=== PATIENT | male | born 1970 | race Caucasian/White ===

== ENCOUNTER 2019-08-15 12:13 | Emergency (ER) | payer OTHER ==
[2019-08-15 12:33] VITALS: BP 122/87; PULSE 100; TEMP 99; BMI 26.8
--- NOTE | 2019-08-15 13:25 | PDOC ---
History of Present Illness - General Chief Complaint: Edema Stated Complaint: SWELLING UNDER RIGHT EYE Time Seen by Provider: 08/15/19 13:01 History Source: Patient Exam Limitations: No Limitations - History of Present Illness Initial Comments: 08/15/19 13:08 Mr. Salmon is a 49-year-old male who presents emergency department with a complaint of swelling of the right cheek periorbital area. Patient states his symptoms began as a small papule. He picked at it and noted that it became more swollen. At some point he inserted a needle into the area and could not extract any purulence Patient became concerned because the area beneath the right eye began to swell He has no fevers or chills He has noted no drainage from the area He first noticed the swelling on his face approximately 2 weeks ago. Since then it is been persistent. Of note he also notes an area on the left buttock that is swollen and also painful This, like the area on his face which is been swollen has been present for the past 2 weeks as well Both areas have increased in size certainly over the past 5 days PMH: Hypertension, hyperlipidemia PSH: Denies Meds: Please see MAR ALL: NKDA Social: FH: ROS: GENERAL/CONSTITUTIONAL: No: fever, chills, weakness . HEAD, EYES, EARS, NOSE AND THROAT: No: change in vision CARDIOVASCULAR: No: chest pain, lightheadedness RESPIRATORY: No: cough, shortness of breath, wheezing GASTROINTESTINAL: No: nausea, vomiting, diarrhea, abdominal pain GENITOURINARY: No: dysuria, hematuria, frequency, urgency, flank pain. MUSCULOSKELETAL: No: back pain, neck pain, joint pain SKIN: Yes: Swelling and erythema of the cheek area NEUROLOGIC: No: headache, vertigo, paresthesias, weakness ENDOCRINE: No: unexplained weight gain or loss HEMATOLOGIC/LYMPHATIC: No: anemia, easy bleeding, swelling nodes. PE: GENERAL: The patient is in no acute distress. HEAD: Normal EYES: PERRLA, EOMI, sclera anicteric, conjunctiva clear, sclera noninjected, no limitation in range of movement of the eye, no pain with movement of the eye. ENT: Ears normal, nares patent, oropharynx clear without exudates. Moist mucous membranes. NECK: Normal range of motion, supple without lymphadenopathy LUNGS: Breath sounds equal, clear to auscultation bilaterally. No wheezes, and no crackles. HEART:Regular rate and rhythm, normal S1 and S2 without murmur, rub or gallop. ABDOMEN: Soft, nontender, normoactive bowel sounds. No guarding, no rebound. No masses palpable. EXTREMITIES: Normal range of motion, no edema. No clubbing or cyanosis. No erythema, or tenderness. NEUROLOGICAL: Cranial nerves II through XII grossly intact. Normal speech. No focal neurological deficits. MUSCULOSKELETAL: Back non-tender to palpation, no CVA tenderness SKIN: There is an indurated area overlying the zygomatic arch just inferior to the right eye. There is also slight bruising noted in addition to erythema. The area of induration measures approximately 1-1/2 cm in diameter There is no fluctuance There is also some 08/15/19 13:30 Left buttock: There is an area of induration measuring approximately 2 cm in diameter No fluctuance noted Minimally tender to palpation Past History - Past Medical History Allergies/Adverse Reactions: Allergies Allergy/AdvReac Type Severity Reaction Status Date / Time No Known Allergies Allergy Unverified 08/15/19 12:20 Home Medications: Ambulatory Orders Atorvastatin Ca [Lipitor] 40 mg PO HS 08/15/19 Bifidobacterium Infantis [Align] 10.5 mg PO DAILY #30 tab.chew 08/15/19 Cephalexin Monohydrate [Keflex -] 500 mg PO Q6H #28 capsule 08/15/19 Clonazepam 0.5 mg PO TID 08/15/19 Lisdexamfetamine Dimesylate [Vyvanse] 70 mg PO DAILY 08/15/19 Sulfamethoxazole/Trimethoprim [Bactrim Ds -] 1 tab PO BID #14 tablet 08/15/19 Venlafaxine HCl ER [Effexor Xr -] 75 mg PO DAILY 08/15/19 propRANOLol HCL [Inderal -] 70 mg PO HS 08/15/19 COPD: No HTN: Yes Hypercholesterolemia: Yes Psychiatric Problems: Yes (ADD DEPRESSION ANXIETY) - Psycho Social/Smoking Cessation Hx Smoking History: Current some day smoker Have you smoked in the past 12 months: Yes Number of Cigarettes Smoked Daily: 1 Information on smoking cessation initiated: Yes Hx Alcohol Use: No Drug/Substance Use Hx: No *Physical Exam - Vital Signs Last Vital Signs Temp Pulse Resp BP Pulse Ox 99 F 100 H 16 122/87 100 08/15/19 12:20 08/15/19 12:20 08/15/19 12:20 08/15/19 12:20 08/15/19 12:20 Medical Decision Making - Medical Decision Making 08/15/19 13:37 Mr. Salmon Is a 49-year-old male who presents emergency department with an area of induration and swelling beneath the right eye. He also has an area similar to this on the left but No systemic signs of illness (Although of note patient's temperature was 99 at triage may be indicative of a low-grade temperature) There is no areas of fluctuance noted We will plan the following: We will initiate antibiotic therapy for MRSA (patient has previously had a MRSA infection involving the lower extremity after arthropod bite) We will give probiotics We will asked patient to do warm soaks Patient will follow-up on Wednesday with either dermatology, plastics or primary care physician If neither of these are helpful, patient will come to the emergency department at [facility] Patient told about concerning signs and symptoms which should prompt immediate return to the emergency department Clinical impression: Cellulitis, initial presentation Phlegmon, initial presentation Discharge - Discharge Information Problems reviewed: Yes Clinical Impression/Diagnosis: Cellulitis and abscess of face Condition: Stable Disposition: HOME - Admission No - Additional Discharge Information Prescriptions: Bifidobacterium Infantis [Align] 10.5 mg PO DAILY #30 tab.chew Cephalexin Monohydrate [Keflex -] 500 mg PO Q6H #28 capsule Sulfamethoxazole/Trimethoprim [Bactrim Ds -] 1 tab PO BID #14 tablet Prescription Drug Monitoring Program (I-STOP) results: I-STOP not reviewed - Follow up/Referral Referrals: Herman Hernandes MD [Staff Physician] - Mich Dodge MD [Staff Physician] - Vicki Johnson [Staff Physician] - - Patient Discharge Instructions Patient Printed Discharge Instructions: DI for Cellulitis -- Adult Additional Instructions: Mr. Salmon Thank you for coming into the emergency department today. You were seen today for what appears to be a local infection and possible early abscess. I would like you to start taking 2 antibiotics which I prescribed I would also like you to start taking a probiotic along with the antibiotic Please apply warm compresses to the area on the face (something like 10 minutes 2 or 3 times per day Please also soak in a warm tub for 10 to 15 minutes twice per day I would like you to follow-up by the end of this week You can be seen by a redevelopment manager (Dr. Johnson), the plastic surgeon (Dr. Hernandes), the primary care physician (Dr. Dodge) or the ER Return to the emergency department immediately with fevers, chills, increased pain, increased swelling, inability to move the eyes. Continue any medications as previously prescribed by your physician. You should follow up with your primary doctor as soon as possible regarding today's emergency department visit. Please make sure your doctor reviews the results of your emergency evaluation. Thank you for coming to the [facility] today for your care. It was a pleasure to see you today. Please note that your evaluation is INCOMPLETE until you follow-up with your doctor. - Post Discharge Activity
== END 2019-08-15 13:40 | disposition home or self-care (01) ==
LOC: FER 12:13
DX: L03.213 Periorbital cellulitis (principal)
CPT/HCPCS: 99281-25

== ENCOUNTER 2019-08-18 16:32 | Emergency (ER) | payer OTHER ==
--- NOTE | 2019-08-18 16:53 | PDOC ---
Rapid Medical Evaluation Chief Complaint: Rash Time Seen by Provider: 08/18/19 16:50 Medical Evaluation: Allergies Allergy/AdvReac Type Severity Reaction Status Date / Time No Known Allergies Allergy Unverified 08/18/19 16:50 08/18/19 16:51 Pt c/o: here for f/u with dr zuniga today , edema to rt cheek Pt on brief exam: min edema under rt eye, no s/s cellulitis Pt ordered for: none pt to proceed to the ED Discharge Disposition - Diagnosis Visit for wound check - Referrals - Patient Instructions - Post Discharge Activity
[2019-08-18 16:55] VITALS: BP 120/89; PULSE 102; TEMP 98.9; BMI 26.6
--- NOTE | 2019-08-18 18:01 | PDOC ---
Suture Removal/Wound Check HPI - History of Present Illness Chief Complaint: Rash Stated Complaint: SENT BY DOCTOR Time Seen by Provider: 08/18/19 16:50 History Source: Yes: Patient Exam Limitations: Yes: No Limitations Treated at: [facility] Date of Last ED visit: 08/16/19 - Previous ED Treatment Type of procedure performed on last visit: Yes: Other (Cellulitis) Past History - Past Medical History Allergies/Adverse Reactions: Allergies Allergy/AdvReac Type Severity Reaction Status Date / Time No Known Allergies Allergy Unverified 08/18/19 16:50 Home Medications: Ambulatory Orders Atorvastatin Ca [Lipitor] 40 mg PO HS 08/15/19 Bifidobacterium Infantis [Align] 10.5 mg PO DAILY #30 tab.chew 08/15/19 Cephalexin Monohydrate [Keflex -] 500 mg PO Q6H #28 capsule 08/15/19 Clonazepam 0.5 mg PO TID 08/15/19 Lisdexamfetamine Dimesylate [Vyvanse] 70 mg PO DAILY 08/15/19 Sulfamethoxazole/Trimethoprim [Bactrim Ds -] 1 tab PO BID #14 tablet 08/15/19 Venlafaxine HCl ER [Effexor Xr -] 75 mg PO DAILY 08/15/19 propRANOLol HCL [Inderal -] 70 mg PO HS 08/15/19 Chlorhexidine Gluconate [Hibiclens For Decolonization -] 1 applic TP DAILY #1 bottle 08/18/19 Mupirocin Ointment [Bactroban Ointment (For Decolonization) -] 1 applic NS BID # 5 applic 08/18/19 COPD: No HTN: Yes Hypercholesterolemia: Yes Psychiatric Problems: Yes (ADD DEPRESSION ANXIETY) - Psycho Social/Smoking Cessation Hx Smoking History: Unknown if ever smoked Have you smoked in the past 12 months: Yes Number of Cigarettes Smoked Daily: 1 Hx Alcohol Use: No Drug/Substance Use Hx: No Suture Removal/Wound Check PE - Physical Exam Laceration/Wound Check Symptoms: reports: None Current Severity Level: None Maximum Severity Level: None Pain Localization: None Pain Radiation: None *Review of Systems - Review of Systems Able to Perform ROS?: Yes Constitutional: No: Symptoms Reported HEENTM: No: Symptoms Reported Respiratory: No: Symptoms reported Cardiac (ROS): No: Symptoms Reported ABD/GI: No: Symptoms Reported : No: Symptoms Reported Musculoskeletal: No: Symptoms Reported Integumentary: Yes: See HPI Neurological: No: Symptoms reported *Physical Exam - Vital Signs Last Vital Signs Temp Pulse Resp BP Pulse Ox 98.9 F 102 H 18 120/89 99 08/18/19 16:51 08/18/19 16:51 08/18/19 16:51 08/18/19 16:51 08/18/19 16:51 - Physical Exam Neck: positive: Other (Single subcentimeter erythematous blanchable lesion present to the right posterior lateral neck.) Medical Decision Making - Medical Decision Making 08/18/19 17:57 A/P: 49-year-old male here for wound check of cellulitis treated 2 days ago and atraumatic left thumb pain Previous lesions have resolved on antibiotics. New singular blanchable erythematous papule presents to the right posterior lateral neck. No palpable fluctuance or fluid able to be expressed Full range of motion of the left thumb against resistance. No bony tenderness, deformity, crepitus or step-off is present. No subcutaneous emphysema is noted. Patient reports a recent extended stay in health care while he is taking care of his father. Questionable MRSA lesion. I will prescribe chlorhexidine topical as well as mupirocin intranasal for decolonization. Likely tendinitis of the left thumb. Patient is refusing x-ray at this time. Discharge home with orthopedic follow-up. Discharge - Discharge Information Problems reviewed: Yes Clinical Impression/Diagnosis: Visit for wound check, Tendinitis of extensor tendon of left hand Condition: Stable Disposition: HOME - Admission No - Additional Discharge Information Prescriptions: Chlorhexidine Gluconate [Hibiclens For Decolonization -] 1 applic TP DAILY #1 bottle Mupirocin Ointment [Bactroban Ointment (For Decolonization) -] 1 applic NS BID # 5 applic - Follow up/Referral Referrals: Chava Greene MD [Staff Physician] - - Patient Discharge Instructions Additional Instructions: Continue previously prescribed medications. Wash with chlorhexidine soap daily until solution is finished. Apply mupirocin ointment to bilateral nostrils twice a day for the next 5 days. Stop using phone and tablet until the pain in your thumb resolves. You have been given a referral for an orthopedist. If your thumb does not improve in the next 7 days call to schedule an appointment. Take Tylenol or Motrin as needed for pain. Thank you very much for choosing us to provide your emergent healthcare needs. - Post Discharge Activity
== END 2019-08-18 18:19 | disposition home or self-care (01) ==
LOC: JERFT 16:32
DX: L03.221 Cellulitis of neck (principal); M77.9 Enthesopathy, unspecified
CPT/HCPCS: 99281-25

== ENCOUNTER 2021-06-23 12:21 | Inpatient (IN) | payer OTHER ==
[2021-06-23] MEDS ORDERED: VANCOMYCIN 1 GM in D5W (PRE-DOCKED) 1,000 MG/250 ML IVPB ONE (12:47)
[2021-06-23] MEDS ORDERED: VANCOMYCIN 1,000 MG VIAL (RESTRICTED TO ID ONLY) ONE (13:15)
[2021-06-23 13:37] LABS: MCH 29.8 pg (25.7-33.7); PLATELET COUNT 328 10^3/uL (134-434); RDW 12.5 % (11.9-15.9); WHITE BLOOD COUNT 13.9 K/mm3 (4.0-10.8)
[2021-06-23 13:44] LABS: ALBUMIN 3.9 g/dl (3.4-5.0); BILIRUBIN,TOTAL 0.6 mg/dl (0.2-1); CALCIUM 9.6 mg/dl (8.5-10); CREATININE 1.1 mg/dl (0.55-1.3); TOT PROT 7.4 g/dl (6.4-8.2)
[2021-06-23 14:14] LABS: BASO % 1.8 % (0-2.0); EOS % 1.4 % (0-4.5); HEMATOCRIT 46.1 % (35.4-49); MCHC 32.5 g/dl (32.0-35.9); MEAN CELL VOLUME 91.8 fl (80-96); MEAN PLT VOLUME 9.6 fl (7.5-11.1); MONO % 7.9 % (3.8-10.2); NEUT % 72.9 % (42.8-82.8); RBC 5.02 M/mm3 (4.00-5.60)
[2021-06-23] MEDS ORDERED: SODIUM CHLORIDE 2,259 ML IV ONE (15:19)
[2021-06-23 17:12] LABS: HEMATOCRIT 40.3 % (35.4-49); HEMOGLOBIN 13.7 GM/dl (11.7-16.9); MCH 30.4 pg (25.7-33.7); MCHC 33.9 g/dl (32.0-35.9); MEAN CELL VOLUME 89.8 fl (80-96); MEAN PLT VOLUME 9.2 fl (7.5-11.1); PLATELET COUNT 309 10^3/uL (134-434); RBC 4.49 M/mm3 (4.00-5.60); RDW 12.1 % (11.9-15.9); WHITE BLOOD COUNT 14.7 K/mm3 (4.0-10.8)
[2021-06-23 17:27] LABS: ALBUMIN 3.5 g/dl (3.4-5.0); BILIRUBIN,TOTAL 0.7 mg/dl (0.2-1); MAGNESIUM 1.9 mg/dL (1.8-2.4); TOT PROT 6.5 g/dl (6.4-8.2)
[2021-06-23] MEDS ORDERED: DEXTROSE 5%-WATER - 50 ML IVPB ONE ×2 (17:33→23:34)
[2021-06-23] MEDS ORDERED: PIPERACILLIN/TAZOBACTAM 3.375 GM VIAL IVPB ONE ×2 (17:33→23:33)
[2021-06-23] MEDS: clonazePAM 0.5 MG TABLET PO SCH ×2 (17:39→21:40)
[2021-06-23] MEDS: ENOXAPARIN NA (PORCINE) 40 MG/0.4 ML DISP.SYRIN SQ SCH (17:40)
[2021-06-23] MEDS: PIPERACILLIN/TAZOB 3.375 GM 3.375 GM in DEXTROSE 5%-WATER - 50 ML IVPB SCH ×2 (17:42→23:58)
[2021-06-23] MEDS: ACETAMINOPHEN 325 MG TABLET (FP) PO PRN (18:07)
[2021-06-23 18:22] LABS: ERYTHROCYTE SEDIMENTATION RATE 52 mm/hr (0-20)
[2021-06-23 18:52] VITALS: BMI 28.6
[2021-06-23] MEDS ORDERED: KETOROLAC TROMETHAMINE 30 MG/1 ML VIAL IVPUSH ONE (20:06)
[2021-06-23 20:16] LABS: PLATELET ESTIMATE ADEQUATE
[2021-06-23] MEDS: ATORVASTATIN CA 40 MG TABLET (FP) PO SCH (21:41)
[2021-06-24] MEDS ORDERED: REFRIGERATED ANITBIOTICS ONE (00:31)
[2021-06-24] MEDS: VANCOMYCIN/WATER BAGS 1,250 MG/250 ML BAG IVPB SCH ×2 (01:01→13:47)
[2021-06-24] MEDS ORDERED: DEXTROSE 5%-WATER - 50 ML IVPB ONE ×2 (06:31→17:59)
[2021-06-24] MEDS ORDERED: PIPERACILLIN/TAZOBACTAM 3.375 GM VIAL IVPB ONE ×2 (06:31→17:59)
[2021-06-24] MEDS: ACETAMINOPHEN 325 MG TABLET (FP) PO PRN ×2 (06:38→21:35)
[2021-06-24] MEDS: PIPERACILLIN/TAZOB 3.375 GM 3.375 GM in DEXTROSE 5%-WATER - 50 ML IVPB SCH ×2 (06:39→18:16)
[2021-06-24 09:05] LABS: EPITHELIAL CELLS RARE /hpf
[2021-06-24] MEDS: VENLAFAXINE HCL 75 MG E.R. CAPSULES PO SCH (09:59)
[2021-06-24] MEDS: clonazePAM 0.5 MG TABLET PO SCH ×4 (09:59→21:36)
[2021-06-24] MEDS: ENOXAPARIN NA (PORCINE) 40 MG/0.4 ML DISP.SYRIN SQ SCH (09:59)
[2021-06-24 10:54] LABS: ALBUMIN 2.9 g/dl (3.4-5.0); BILIRUBIN,TOTAL 0.7 mg/dl (0.2-1); CALCIUM 8.4 mg/dl (8.5-10); CREATININE 1.1 mg/dl (0.55-1.3); MAGNESIUM 1.8 mg/dL (1.8-2.4); TOT PROT 5.7 g/dl (6.4-8.2)
[2021-06-24 11:30] LABS: BASO % 0.3 % (0-2.0); EOS % 0.6 % (0-4.5); HEMATOCRIT 34.6 % (35.4-49); HEMOGLOBIN 11.8 GM/dL (11.7-16.9); LYMPH % 12.7 % (8-40); MCH 30.2 pg (25.7-33.7); MCHC 34.2 g/dl (32.0-35.9); MEAN CELL VOLUME 88.3 fl (80-96); MEAN PLT VOLUME 8.9 fl (7.5-11.1); MONO % 7.5 % (3.8-10.2); NEUT % 78.9 % (42.8-82.8); PLATELET COUNT 236 10^3/uL (134-434); RBC 3.91 M/mm3 (4.00-5.60); WHITE BLOOD COUNT 12.1 K/mm3 (4.0-10.0)
[2021-06-24] MEDS ORDERED: SODIUM CHLORIDE 500 ML IV STA (11:36)
[2021-06-24] MEDS ORDERED: VANCOMYCIN HCL 1,250 MG in DEXTROSE 5%-WATER - 1,250 MG/250 ML IVPB IVPB SCH (13:45)
[2021-06-24] MEDS: ATORVASTATIN CA 40 MG TABLET (FP) PO SCH (21:36)
[2021-06-25] MEDS ORDERED: PIPERACILLIN/TAZOBACTAM 3.375 GM VIAL IVPB ONE ×3 (00:09→17:46)
[2021-06-25] MEDS ORDERED: DEXTROSE 5%-WATER - 50 ML IVPB ONE ×3 (00:09→17:46)
[2021-06-25] MEDS: PIPERACILLIN/TAZOB 3.375 GM 3.375 GM in DEXTROSE 5%-WATER - 50 ML IVPB SCH ×5 (01:57→18:06)
[2021-06-25] MEDS: ACETAMINOPHEN 325 MG TABLET (FP) PO PRN (05:01)
[2021-06-25] MEDS: VANCOMYCIN/WATER 1,250 MG/250 ML BAG IVPB SCH (07:09)
[2021-06-25 07:58] LABS: BASO % 1.2 % (0-2.0); EOS % 1.3 % (0-4.5); HEMATOCRIT 36.8 % (35.4-49); HEMOGLOBIN 12.4 GM/dl (11.7-16.9); LYMPH % 18.5 % (8-40); MCH 29.9 pg (25.7-33.7); MCHC 33.7 g/dl (32.0-35.9); MEAN CELL VOLUME 88.9 fl (80-96); MEAN PLT VOLUME 8.9 fl (7.5-11.1); PLATELET COUNT 247 10^3/uL (134-434); RBC 4.14 M/mm3 (4.00-5.60); RDW 12.4 % (11.9-15.9); WHITE BLOOD COUNT 12.4 K/mm3 (4.0-10.8)
[2021-06-25 08:12] LABS: ALBUMIN 3.2 g/dl (3.4-5.0); BILIRUBIN,TOTAL 0.6 mg/dl (0.2-1); CALCIUM 9.3 mg/dl (8.5-10); CREATININE 0.9 mg/dl (0.55-1.3); MAGNESIUM 1.8 mg/dL (1.8-2.4); TOT PROT 6.4 g/dl (6.4-8.2)
[2021-06-25] MEDS: VENLAFAXINE HCL 75 MG E.R. CAPSULES PO SCH (10:21)
[2021-06-25] MEDS: clonazePAM 0.5 MG TABLET PO SCH ×4 (10:21→21:12)
[2021-06-25] MEDS: ENOXAPARIN NA (PORCINE) 40 MG/0.4 ML DISP.SYRIN SQ SCH (10:21)
[2021-06-25] MEDS ORDERED: PT OWN MED DRAWER 7, Y5N ONE (14:54)
[2021-06-25] MEDS: VANCOMYCIN HCL 1,250 MG in DEXTROSE 5%-WATER - 1,250 MG/250 ML IVPB IVPB SCH (14:58)
[2021-06-25] MEDS: ATORVASTATIN CA 40 MG TABLET (FP) PO SCH (21:12)
[2021-06-26] MEDS ORDERED: DEXTROSE 5%-WATER - 50 ML IVPB ONE ×3 (03:22→17:09)
[2021-06-26] MEDS ORDERED: PIPERACILLIN/TAZOBACTAM 3.375 GM VIAL IVPB ONE ×4 (03:22→17:09)
[2021-06-26] MEDS: PIPERACILLIN/TAZOB 3.375 GM 3.375 GM in DEXTROSE 5%-WATER - 50 ML IVPB SCH ×3 (03:24→17:22)
[2021-06-26 08:23] LABS: ALBUMIN 3.2 g/dl (3.4-5.0); BILIRUBIN,TOTAL 0.5 mg/dl (0.2-1); CALCIUM 9.6 mg/dl (8.5-10); TOT PROT 6.5 g/dl (6.4-8.2)
[2021-06-26] MEDS: clonazePAM 0.5 MG TABLET PO SCH ×4 (09:26→21:31)
[2021-06-26] MEDS: VENLAFAXINE HCL 75 MG E.R. CAPSULES PO SCH (09:26)
[2021-06-26] MEDS: ENOXAPARIN NA (PORCINE) 40 MG/0.4 ML DISP.SYRIN SQ SCH (09:27)
[2021-06-26 10:29] LABS: BASO % 0.6 % (0-2.0); EOS % 1.6 % (0-4.5); HEMATOCRIT 37.5 % (35.4-49); HEMOGLOBIN 12.7 GM/dL (11.7-16.9); LYMPH % 16.7 % (8-40); MCH 29.9 pg (25.7-33.7); MEAN CELL VOLUME 87.9 fl (80-96); MEAN PLT VOLUME 8.7 fl (7.5-11.1); MONO % 10.9 % (3.8-10.2); NEUT % 70.2 % (42.8-82.8); PLATELET COUNT 285 10^3/uL (134-434); RBC 4.26 M/mm3 (4.00-5.60); RDW 12.9 % (11.9-15.9); WHITE BLOOD COUNT 10.5 K/mm3 (4.0-10.0)
[2021-06-26] MEDS ORDERED: PT OWN MED DRAWER 7, Y5N ONE (14:08)
[2021-06-26] MEDS: VANCOMYCIN HCL 1,250 MG in DEXTROSE 5%-WATER - 1,250 MG/250 ML IVPB IVPB SCH (14:13)
[2021-06-26] MEDS: ACETAMINOPHEN 325 MG TABLET (FP) PO PRN (15:50)
[2021-06-26] MEDS: ATORVASTATIN CA 40 MG TABLET (FP) PO SCH (21:31)
[2021-06-27] MEDS: PIPERACILLIN/TAZOB 3.375 GM 3.375 GM in DEXTROSE 5%-WATER - 50 ML IVPB SCH ×2 (02:00→10:29)
[2021-06-27] MEDS ORDERED: DEXTROSE 5%-WATER - 50 ML IVPB ONE ×2 (03:06→10:04)
[2021-06-27] MEDS ORDERED: PIPERACILLIN/TAZOBACTAM 3.375 GM VIAL IVPB ONE ×2 (03:06→10:03)
[2021-06-27] MEDS ORDERED: clonazePAM 0.5 MG TABLET PO ONE (04:26)
[2021-06-27] MEDS: VENLAFAXINE HCL 75 MG E.R. CAPSULES PO SCH (10:28)
[2021-06-27] MEDS: clonazePAM 0.5 MG TABLET PO SCH ×4 (10:28→21:05)
[2021-06-27] MEDS: ENOXAPARIN NA (PORCINE) 40 MG/0.4 ML DISP.SYRIN SQ SCH (10:29)
[2021-06-27 12:24] LABS: ALBUMIN 3.2 g/dl (3.4-5.0); BILIRUBIN,TOTAL 0.5 mg/dl (0.2-1); CALCIUM 9.4 mg/dl (8.5-10); CREATININE 0.9 mg/dl (0.55-1.3); TOT PROT 6.8 g/dl (6.4-8.2)
[2021-06-27 12:55] LABS: BASO % 0.4 % (0-2.0); EOS % 1.4 % (0-4.5); HEMATOCRIT 38.8 % (35.4-49); HEMOGLOBIN 13.2 GM/dL (11.7-16.9); LYMPH % 20.1 % (8-40); MCH 29.6 pg (25.7-33.7); MEAN PLT VOLUME 8.5 fl (7.5-11.1); MONO % 12.1 % (3.8-10.2); PLATELET COUNT 330 10^3/uL (134-434); RBC 4.45 M/mm3 (4.00-5.60); WHITE BLOOD COUNT 7.9 K/mm3 (4.0-10.0)
[2021-06-27] MEDS ORDERED: PT OWN MED DRAWER 7, Y5N ONE (14:00)
[2021-06-27] MEDS: VANCOMYCIN HCL 1,250 MG in DEXTROSE 5%-WATER - 1,250 MG/250 ML IVPB IVPB SCH (14:22)
[2021-06-27] MEDS: ATORVASTATIN CA 40 MG TABLET (FP) PO SCH (21:05)
[2021-06-28] MEDS: clonazePAM 0.5 MG TABLET PO SCH ×4 (09:57→21:34)
[2021-06-28] MEDS: VENLAFAXINE HCL 75 MG E.R. CAPSULES PO SCH (09:57)
[2021-06-28] MEDS: ENOXAPARIN NA (PORCINE) 40 MG/0.4 ML DISP.SYRIN SQ SCH (09:57)
[2021-06-28 11:23] LABS: BASO % 0.8 % (0-2.0); EOS % 1.6 % (0-4.5); HEMATOCRIT 39.9 % (35.4-49); HEMOGLOBIN 13.9 GM/dL (11.7-16.9); LYMPH % 22.7 % (8-40); MCH 30.7 pg (25.7-33.7); MCHC 34.8 g/dl (32.0-35.9); MEAN CELL VOLUME 88.3 fl (80-96); MEAN PLT VOLUME 8.9 fl (7.5-11.1); MONO % 10.4 % (3.8-10.2); NEUT % 64.5 % (42.8-82.8); PLATELET COUNT 384 10^3/uL (134-434); RBC 4.52 M/mm3 (4.00-5.60); WHITE BLOOD COUNT 9.6 K/mm3 (4.0-10.0)
[2021-06-28] MEDS: VANCOMYCIN HCL 1,250 MG in DEXTROSE 5%-WATER - 1,250 MG/250 ML IVPB IVPB SCH (15:36)
[2021-06-28] MEDS ORDERED: VANCOMYCIN/WATER 1,250 MG/250 ML BAG IVPB ONE (16:04)
[2021-06-28] MEDS: ATORVASTATIN CA 40 MG TABLET (FP) PO SCH (21:34)
[2021-06-28] MEDS: ACETAMINOPHEN 325 MG TABLET (FP) PO PRN (21:35)
[2021-06-29] MEDS: VANCOMYCIN 1 GRAM (PRE-DOCKED) 1,000 MG/250 ML BAG IVPB SCH ×2 (03:09→14:50)
[2021-06-29] MEDS: ENOXAPARIN NA (PORCINE) 40 MG/0.4 ML DISP.SYRIN SQ SCH (09:10)
[2021-06-29] MEDS: VENLAFAXINE HCL 75 MG E.R. CAPSULES PO SCH (09:10)
[2021-06-29] MEDS: clonazePAM 0.5 MG TABLET PO SCH ×4 (09:10→21:36)
[2021-06-29 09:11] LABS: ALBUMIN 3.8 g/dl (3.4-5.0); BILIRUBIN,TOTAL 0.4 mg/dl (0.2-1); CALCIUM 9.7 mg/dl (8.5-10); CREATININE 0.8 mg/dl (0.55-1.3); TOT PROT 7.3 g/dl (6.4-8.2)
[2021-06-29 10:05] LABS: BASO % 0.4 % (0-2.0); HEMATOCRIT 41.4 % (35.4-49); HEMOGLOBIN 14.3 GM/dL (11.7-16.9); LYMPH % 19.8 % (8-40); MCH 30.3 pg (25.7-33.7); MCHC 34.5 g/dl (32.0-35.9); MEAN CELL VOLUME 87.7 fl (80-96); MEAN PLT VOLUME 8.6 fl (7.5-11.1); MONO % 9.2 % (3.8-10.2); NEUT % 69.6 % (42.8-82.8); PLATELET COUNT 392 10^3/uL (134-434); RBC 4.72 M/mm3 (4.00-5.60); RDW 13.1 % (11.9-15.9)
[2021-06-29] MEDS ORDERED: PT OWN MED DRAWER 7, Y5N ONE (11:25)
[2021-06-29] MEDS: [UNRECOGNIZED DRUG - OTHER] PO SCH (11:27)
[2021-06-29] MEDS: ACETAMINOPHEN 325 MG TABLET (FP) PO PRN ×2 (14:48→22:09)
[2021-06-29] MEDS: ATORVASTATIN CA 40 MG TABLET (FP) PO SCH (21:36)
[2021-06-30] MEDS: VANCOMYCIN 1 GRAM (PRE-DOCKED) 1,000 MG/250 ML BAG IVPB SCH (03:12)
[2021-06-30 08:25] LABS: ALBUMIN 3.5 g/dl (3.4-5.0); BILIRUBIN,TOTAL 0.3 mg/dl (0.2-1); CALCIUM 9.5 mg/dl (8.5-10); CREATININE 0.8 mg/dl (0.55-1.3); TOT PROT 6.6 g/dl (6.4-8.2)
[2021-06-30] MEDS ORDERED: PT OWN MED DRAWER 7, Y5N ONE (09:06)
[2021-06-30 09:29] LABS: BASO % 0.5 % (0-2.0); EOS % 0.8 % (0-4.5); HEMATOCRIT 41.5 % (35.4-49); HEMOGLOBIN 14.4 GM/dL (11.7-16.9); LYMPH % 18.8 % (8-40); MCH 30.4 pg (25.7-33.7); MCHC 34.6 g/dl (32.0-35.9); MEAN CELL VOLUME 87.8 fl (80-96); MEAN PLT VOLUME 8.5 fl (7.5-11.1); MONO % 9.9 % (3.8-10.2); PLATELET COUNT 416 10^3/uL (134-434); RBC 4.72 M/mm3 (4.00-5.60); WHITE BLOOD COUNT 10.2 K/mm3 (4.0-10.0)
[2021-06-30] MEDS: ENOXAPARIN NA (PORCINE) 40 MG/0.4 ML DISP.SYRIN SQ SCH (09:56)
[2021-06-30] MEDS: clonazePAM 0.5 MG TABLET PO SCH (09:57)
[2021-06-30] MEDS: [UNRECOGNIZED DRUG - OTHER] PO SCH (09:57)
[2021-06-30] MEDS: VENLAFAXINE HCL 75 MG E.R. CAPSULES PO SCH (09:57)
[2021-06-30 10:19] VITALS: BP 101/65; PULSE 100; TEMP 98.2
== END 2021-06-30 10:54 | disposition home or self-care (01) | DRG 720 ==
LOC: FER 12:21 → FM/S 14:50
PROVIDERS: ADMIT Internal Medicine; ATTEND Nurse Practitioner Acute Care
PROC: 0Y9F0ZZ Drainage of Right Knee Region, Open Approach (ICD-10-PCS; principal; 2021-06-25)
DX: A41.9 Sepsis, unspecified organism (principal); R45.851 Suicidal ideations; I95.9 Hypotension, unspecified; E78.5 Hyperlipidemia, unspecified; F90.9 Attention-deficit hyperactivity disorder, unspecified type; F32.9 Major depressive disorder, single episode, unspecified; G47.00 Insomnia, unspecified; I10 Essential (primary) hypertension; L03.115 Cellulitis of right lower limb; L08.9 Local infection of the skin and subcutaneous tissue, unspecified; R31.0 Gross hematuria; R50.9 Fever, unspecified; A49.02 Methicillin resistant Staphylococcus aureus infection, unspecified site; F41.8 Other specified anxiety disorders
CPT/HCPCS: 36415; 73560-TC-RT-FY; 73701-TC-RT; 80053; 81003; 81015; 83605; 83735; 85025; 85651; 86140; 87040; 87070; 87186; 87205; 99285-25; C9803; G0480; U0003; U0005